=== PATIENT | female | born 1990 | race Caucasian/White ===

== ENCOUNTER 2016-02-25 22:15 | Outpatient (CLI) | payer OTHER ==
[~2016-02-25] VITALS: Ht 154.9 cm; Wt 76.2 kg
[~2016-02-25 22:15] MED LIST: Chromagen, Feogen, M PO; HYDROCODON-ACE1 EAC7 PO; IBUPROFEN800 MG PO; MICRONOR0.35 MG PO; Motrin PO; NATALCARE RX1 TABLET PO; Slow Fe PO; Tylenol Extra Streng PO
[2016-02-25 22:30] VITALS: BP 123/59
== END 2016-02-25 23:06 | disposition home or self-care (01) ==
LOC: LDRP-OP 22:15 → 2WEST 22:16 → LDRP-OP 04-06 15:19
DX: O36.8130 Decreased fetal movements, third trimester, not applicable or unspecified (principal); O99.89 Other specified diseases and conditions complicating pregnancy, childbirth and the puerperium; Z3A.38 38 weeks gestation of pregnancy
CPT/HCPCS: 59025; G0378

== ENCOUNTER 2016-03-02 22:53 | Inpatient (IN) | payer OTHER ==
[~2016-03-02] VITALS: Ht 162.6 cm; Wt 76.8 kg
[2016-03-02 23:20] VITALS: BP 109/70
[2016-03-03] VITALS (11 sets, daily range): BP systolic 100–126; BP diastolic 56–76
[2016-03-03 00:06] LABS: EOSINOPHIL COUNT 0.1 K/uL (0-0.3); HEMATOCRIT 29.2 % (36.0-46.0); IMMATURE GRANULOCYTE (%) 0.6 % (0.0-0.7); IMMATURE GRANULOCYTE COUNT 0.5 K/uL; LYMPHOCYTE COUNT 1.9 K/uL (1.0-2.8); MCH 27.1 PG (29.0-34.0); MCHC 32.5 G/DL (30.0-36.0); MCV 83.2 FL (83-99); MEAN PLAT.VOLUME 10.7 uM^3 (9.5-12.4); MONOCYTE (%) 8.2 % (3-12); MONOCYTE COUNT 0.6 K/uL (0-0.8); NEUTROPHIL (%) 65.7 % (45-76); NEUTROPHIL COUNT 5.1 K/uL (1.8-6.4); PLATELET COUNT 154 K/uL (156-360); RBC DIS.WIDTH-CV 13.6 % (11.8-14.6); RBC DIS.WIDTH-SD 39.3 % (39-53); RED BLOOD COUNT 3.51 M/uL (3.80-5.20); WHITE BLOOD COUNT 7.7 K/uL (4.1-10.2)
[2016-03-03 04:00] LABS: CANDIDA DNA PROBE POSITIVE; GARDNERELLA DNA PROBE NEGATIVE; INTERNAL CONTROL VALID? YES
[2016-03-04 06:15] LABS: EOSINOPHIL COUNT 0.1 K/uL (0-0.3); HEMATOCRIT 26.7 % (36.0-46.0); IMMATURE GRANULOCYTE (%) 0.7 % (0.0-0.7); IMMATURE GRANULOCYTE COUNT 0.1 K/uL; LYMPHOCYTE COUNT 1.8 K/uL (1.0-2.8); MCH 26.8 PG (29.0-34.0); MCHC 31.8 G/DL (30.0-36.0); MCV 84.2 FL (83-99); MEAN PLAT.VOLUME 11.4 uM^3 (9.5-12.4); MONOCYTE (%) 7.1 % (3-12); MONOCYTE COUNT 0.5 K/uL (0-0.8); NEUTROPHIL (%) 66.3 % (45-76); NEUTROPHIL COUNT 4.8 K/uL (1.8-6.4); PLATELET COUNT 121 K/uL (156-360); RBC DIS.WIDTH-CV 13.8 % (11.8-14.6); RBC DIS.WIDTH-SD 42.3 % (39-53); RED BLOOD COUNT 3.17 M/uL (3.80-5.20); WHITE BLOOD COUNT 7.2 K/uL (4.1-10.2)
[2016-03-04 08:33] VITALS: BP 99/55
[2016-03-04] MEDS ORDERED: BREAST PUMP MC (12:36)
== END 2016-03-04 14:25 | disposition home or self-care (01) | DRG 775 ==
LOC: LDRP-OP 22:53 → 2WEST 22:54 → LDRP-OP 04-06 23:30
PROVIDERS: Advanced Practice Midwife
DX: O36.8131 Decreased fetal movements, third trimester, fetus 1 (principal); Z37.0 Single live birth; Z3A.39 39 weeks gestation of pregnancy; D50.9 Iron deficiency anemia, unspecified; O99.02 Anemia complicating childbirth; O70.1 Second degree perineal laceration during delivery; L50.9 Urticaria, unspecified; O99.72 Diseases of the skin and subcutaneous tissue complicating childbirth
CPT/HCPCS: 36415; 80053; 82239 90; 85025; 87480; 87510; 87660; G0378; J7120